=== PATIENT | male | born 1985 | race Caucasian/White ===

== ENCOUNTER → 2021-03-28 | Outpatient (CLI) | payer OTHER ==
[~2021-03-28] MED LIST: LIDOCAINE 2% 5 ML JELLY TP ONE
== END | disposition home or self-care (01) ==
LOC: HBOWC 10:17
PROVIDERS: ATTEND Podiatrist
DX: S81.802A Unspecified open wound, left lower leg, initial encounter (principal); L97.822 Non-pressure chronic ulcer of other part of left lower leg with fat layer exposed; Z79.82 Long term (current) use of aspirin; Z79.899 Other long term (current) drug therapy; X58.XXXA Exposure to other specified factors, initial encounter; Y93.89 Activity, other specified; Y92.89 Other specified places as the place of occurrence of the external cause; Y99.8 Other external cause status
CPT/HCPCS: 11042; G0463; 99205

== ENCOUNTER → 2021-04-04 | Outpatient (CLI) | payer OTHER | END | disposition home or self-care (01) | LOC: HBOWC 09:06 | PROVIDERS: ATTEND Podiatrist | DX: S81.802D Unspecified open wound, left lower leg, subsequent encounter (principal); L84 Corns and callosities; Z79.82 Long term (current) use of aspirin; Z79.899 Other long term (current) drug therapy; V03.99XD Pedestrian with other conveyance injured in collision with car, pick-up truck or van, unspecified whether traffic or nontraffic accident, subsequent encounter | CPT/HCPCS: 11042; G0463 ==

== ENCOUNTER → 2021-04-11 | Outpatient (CLI) | payer OTHER | END | disposition home or self-care (01) | LOC: HBOWC 09:57 | PROVIDERS: ATTEND Podiatrist | DX: S81.802D Unspecified open wound, left lower leg, subsequent encounter (principal); L97.822 Non-pressure chronic ulcer of other part of left lower leg with fat layer exposed; Z79.82 Long term (current) use of aspirin; Z79.899 Other long term (current) drug therapy; X58.XXXD Exposure to other specified factors, subsequent encounter | CPT/HCPCS: 11042; G0463 ==

== ENCOUNTER → 2021-04-18 | Outpatient (CLI) | payer OTHER | END | disposition home or self-care (01) | LOC: HBOWC 08:53 | PROVIDERS: ATTEND Podiatrist | DX: S81.802D Unspecified open wound, left lower leg, subsequent encounter (principal); L97.822 Non-pressure chronic ulcer of other part of left lower leg with fat layer exposed; L84 Corns and callosities; Z79.82 Long term (current) use of aspirin; Z79.899 Other long term (current) drug therapy; X58.XXXD Exposure to other specified factors, subsequent encounter | CPT/HCPCS: 11042; G0463 ==

== ENCOUNTER → 2021-04-25 | Outpatient (CLI) | payer OTHER | END | disposition home or self-care (01) | LOC: HBOWC 09:04 | PROVIDERS: ATTEND Podiatrist | DX: S81.802D Unspecified open wound, left lower leg, subsequent encounter (principal); Z79.82 Long term (current) use of aspirin; Z79.899 Other long term (current) drug therapy; V03.99XD Pedestrian with other conveyance injured in collision with car, pick-up truck or van, unspecified whether traffic or nontraffic accident, subsequent encounter | CPT/HCPCS: 11042; 97597; G0463 ==

== ENCOUNTER → 2021-05-02 | Outpatient (CLI) | payer OTHER | END | disposition home or self-care (01) | LOC: HBOWC 09:03 | PROVIDERS: ATTEND Podiatrist | DX: S81.802D Unspecified open wound, left lower leg, subsequent encounter (principal); Z79.82 Long term (current) use of aspirin; Z79.899 Other long term (current) drug therapy; V49.9XXD Car occupant (driver) (passenger) injured in unspecified traffic accident, subsequent encounter | CPT/HCPCS: 11042; G0463 ==

== ENCOUNTER → 2021-05-09 | Outpatient (CLI) | payer OTHER | END | disposition home or self-care (01) | LOC: HBOWC 09:05 | PROVIDERS: ATTEND Podiatrist | DX: S81.802D Unspecified open wound, left lower leg, subsequent encounter (principal); Z79.899 Other long term (current) drug therapy; V03.99XD Pedestrian with other conveyance injured in collision with car, pick-up truck or van, unspecified whether traffic or nontraffic accident, subsequent encounter | CPT/HCPCS: 11042 ==

== ENCOUNTER → 2021-05-23 | Outpatient (CLI) | payer OTHER | END | disposition home or self-care (01) | LOC: HBOWC 09:03 | PROVIDERS: ATTEND Podiatrist | DX: S81.802D Unspecified open wound, left lower leg, subsequent encounter (principal); L97.822 Non-pressure chronic ulcer of other part of left lower leg with fat layer exposed; L84 Corns and callosities; Z79.899 Other long term (current) drug therapy; Z79.82 Long term (current) use of aspirin; V03.99XD Pedestrian with other conveyance injured in collision with car, pick-up truck or van, unspecified whether traffic or nontraffic accident, subsequent encounter | CPT/HCPCS: 11042; G0463 ==

== ENCOUNTER → 2021-06-06 | Outpatient (CLI) | payer OTHER | END | disposition home or self-care (01) | LOC: HBOWC 08:58 | PROVIDERS: ATTEND Podiatrist | DX: S81.802D Unspecified open wound, left lower leg, subsequent encounter (principal); L97.822 Non-pressure chronic ulcer of other part of left lower leg with fat layer exposed; L84 Corns and callosities; Z79.899 Other long term (current) drug therapy; Z79.82 Long term (current) use of aspirin; V03.99XD Pedestrian with other conveyance injured in collision with car, pick-up truck or van, unspecified whether traffic or nontraffic accident, subsequent encounter | CPT/HCPCS: 11042; 97597; G0463 ==

== ENCOUNTER → 2021-07-02 | Outpatient (CLI) | payer OTHER | END | disposition home or self-care (01) | LOC: HBOWC 08:55 | PROVIDERS: ATTEND Podiatrist | DX: S81.802D Unspecified open wound, left lower leg, subsequent encounter (principal); L97.821 Non-pressure chronic ulcer of other part of left lower leg limited to breakdown of skin; Z79.82 Long term (current) use of aspirin; Z79.899 Other long term (current) drug therapy; X58.XXXD Exposure to other specified factors, subsequent encounter | CPT/HCPCS: G0463; Z7500 ==